=== PATIENT | female | born 1965 | race Caucasian/White ===

== ENCOUNTER 2023-05-13 12:09 | Emergency (ER) | payer MEDICAID, OTHER ==
[~2023-05-13] VITALS: Ht 160 cm; Wt 68.0 kg
[2023-05-13 12:33] VITALS: BP 138/68; PULSE 97; RESP 15; TEMP 99.5; O2SAT 96
[2023-05-13] MEDS ORDERED: ALBU0.0912 INH (13:11)
[2023-05-13] MEDS ORDERED: BENZ200C4 PO (13:11)
[2023-05-13] MEDS ORDERED: IBUP-2213 PO (13:11)
[2023-05-13 13:30] LABS: FLU A ANTIGEN POSITIVE (NEGATIVE); FLU B ANTIGEN NEGATIVE (NEGATIVE)
== END 2023-05-13 13:24 | disposition home or self-care (01) ==
LOC: MED 12:09
DX: J10.1 Influenza due to other identified influenza virus with other respiratory manifestations (principal); Z20.822 Contact with and (suspected) exposure to COVID-19; E03.9 Hypothyroidism, unspecified
CPT/HCPCS: 99283

== ENCOUNTER 2023-11-28 08:15 | Day surgery (SDC) | payer OTHER ==
[~2023-11-28] VITALS: Ht 160 cm; Wt 66.7 kg
[~2023-11-28 08:15] MED LIST: ALBU0.0912 INH; BENZ200C4 PO; IBUP-2213 PO
[2023-11-28] MEDS ORDERED: diphenhydrAMINE 50 MG/ML VIAL ONE (08:47)
[2023-11-28] MEDS ORDERED: MIDAZOLAM 5 MG/5 ML VIAL ONE (08:47)
[2023-11-28] MEDS ORDERED: fentaNYL citrate 0.05 MG/ML VIAL ONE (08:47)
[2023-11-28] MEDS: MIDAZOLAM 2 MG/2 ML VIAL IVP ONE (09:03)
[2023-11-28] MEDS: fentaNYL citrate 0.05 MG/ML VIAL IVP ONE (09:04)
== END 2023-11-28 10:46 | disposition home or self-care (01) ==
LOC: MMU 08:15 → MDS 08:15
PROVIDERS: ATTEND Internal Medicine Gastroenterology
DX: R13.10 Dysphagia, unspecified (principal); K21.00 Gastro-esophageal reflux disease with esophagitis, without bleeding; K44.9 Diaphragmatic hernia without obstruction or gangrene; K22.2 Esophageal obstruction; Z83.3 Family history of diabetes mellitus; Z98.891 History of uterine scar from previous surgery; Z79.899 Other long term (current) drug therapy; Z98.890 Other specified postprocedural states
CPT/HCPCS: 43239; 43249; 88305; 88312; 88313; 88342; C1769; J1200; J2250; J3010